=== PATIENT | male | born 1955 | race American Indian/Alaskan Native ===

== ENCOUNTER 2017-06-10 12:44 | Inpatient (IN) | payer MEDICARE, MEDICAID ==
[2017-06-10 12:51] VITALS: BMI 33.6
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
[2017-06-10 13:20] LABS: BASO # 0.02 K/mm3 (0.0-2.0); BASO % 0.3 % (0.0-3.0); EOS # 0.1 (0.0-0.7); GRAN # 3.45 (1.4-6.5); GRAN % 58.9 % (50.0-68.0); HEMATOCRIT 34.6 % (42.0-52.0); LYMPH # 1.5 (1.2-3.4); LYMPH % 25.2 % (22.0-35.0); MEAN CELL VOLUME 73.5 fl (80.0-105.0); MEAN CORPUSCULAR HEMOGLOBIN 22.9 pg (25.0-35.0); MEAN CORPUSCULAR HGB CONC 31.2 g/dl (31.0-37.0); MEAN PLATELET VOLUME 9.4 fl (7.0-11.0); MONO # 0.8 (0.1-0.6); MONO % 13.6 % (1.0-6.0); RED CELL DISTRIBUTION WIDTH 14.8 % (11.5-14.5); WHITE BLOOD COUNT 5.9 10^3/ul (4.5-11.0)
[2017-06-10 13:25] LABS: ALB/GLOB RATIO 0.9 (1.1-1.8); ALKALINE PHOSPHATASE 175 U/L (38-126); ALT/SGPT 86 U/L (7-56); AST/SGOT 46 U/L (17-59); BILIRUBIN,TOTAL 0.4 mg/dL (0.2-1.3); BLOOD UREA NITROGEN 34 mg/dL (7-21); CALCIUM 9.1 mg/dL (8.4-10.5); CARBON DIOXIDE 26 mmol/L (21-33); CHLORIDE 103 mmol/L (98-107); GFR AFRICAN-AMERICAN > 60; POTASSIUM 4.6 mmol/L (3.6-5.0); SODIUM 140 mmol/L (132-148); TOTAL PROTEIN 7.6 g/dL (5.8-8.3)
[2017-06-10 13:41] LABS: GLUCOSE,RANDOM 302 mg/dL (70-110)
[2017-06-10] MEDS ORDERED: Sodium Chloride 0.9% 500 ML IV STA (13:51)
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
[2017-06-10 15:06] LABS: VENOUS BLOOD GAS BASE EXCESS 0.7 mmol/L (0.0-2.0); VENOUS BLOOD PH 7.33 (7.32-7.43)
[2017-06-10] MEDS ORDERED: cefTRIAXone 1 gm 1 G/100 ML BAG IVPB STA (15:59)
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
[2017-06-10] MEDS ORDERED: Pneumococcal 23-Valent Vaccine IM ONE (18:58)
--- NOTE | 2017-06-10 19:22 | CARD ---
APPROVED REPORT EKG Measurement Heart [id number] <Conclusion> Sinus bradycardia with 1st degree AV block Possible Left atrial enlargement Cannot rule out Anterior infarct, age undetermined Abnormal ECG
[2017-06-10] MEDS ORDERED: INSULIN GLARGINE SC SCH (22:00)
[2017-06-10] MEDS: Insulin Lispro (humaLOG) MEDIUM Coverage SC SCH (22:23)
[2017-06-10] MEDS: Insulin Detemir 100 units/ml Vial (Levemir) SC SCH (22:24)
[2017-06-11] MEDS: Pantoprazole 40 mg EC Tab PO SCH ×2 (05:54→08:31)
[2017-06-11 07:13] LABS: BASO # 0.01 K/mm3 (0.0-2.0); BASO % 0.2 % (0.0-3.0); EOS # 0.1 (0.0-0.7); EOS % 2.2 % (1.5-5.0); GRAN # 2.92 (1.4-6.5); GRAN % 59.1 % (50.0-68.0); HEMATOCRIT 34.1 % (42.0-52.0); LYMPH # 1.2 (1.2-3.4); LYMPH % 24.4 % (22.0-35.0); MEAN CELL VOLUME 72.7 fl (80.0-105.0); MEAN CORPUSCULAR HEMOGLOBIN 22.2 pg (25.0-35.0); MEAN CORPUSCULAR HGB CONC 30.5 g/dl (31.0-37.0); MEAN PLATELET VOLUME 8.9 fl (7.0-11.0); MONO # 0.7 (0.1-0.6); MONO % 14.1 % (1.0-6.0); RED CELL DISTRIBUTION WIDTH 14.7 % (11.5-14.5)
[2017-06-11] MEDS: Insulin Lispro (humaLOG) MEDIUM Coverage SC SCH ×4 (08:29→21:18)
[2017-06-11] MEDS: Insulin Detemir 100 units/ml Vial (Levemir) SC SCH ×2 (09:37→21:17)
[2017-06-11] MEDS: cefTRIAXone 1 gm 1 GM/100 ML BAG IVPB SCH (09:51)
[2017-06-11] MEDS ORDERED: cefTRIAXone 2 GM IN NS 2 GM/100 ML BAG IVPB SCH (10:00)
--- NOTE | 2017-06-11 10:35 | RAD ---
PROCEDURE: Bilateral Knee Radiographs. HISTORY: left knee pain COMPARISON: None. FINDINGS: BONES: Right Knee: Normal. No fracture. Left Knee: Normal. No fracture. JOINTS: Right Knee: Severe joint space narrowing and osteophyte formation bilaterally in the medial and lateral compartments as well as patellofemoral joints Left knee: As above SOFT TISSUES: Right Knee: Normal. Left Knee: Normal. JOINT EFFUSION: Right Knee: None. Left Knee: None. OTHER FINDINGS: None. IMPRESSION: Severe joint space narrowing and osteophyte formation bilaterally in the medial and lateral compartments as well as patellofemoral joints
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
--- NOTE | 2017-06-11 17:41 | CP.PCM.PN ---
<Fredrick Mak - Last Filed: 06/11/17 17:51> Subjective - Date & Time of Evaluation Date of Evaluation: 06/11/17 Time of Evaluation: 09:00 - Subjective Subjective: Fredrick Mak DO, PGY-1 Patient seen and examined at bedside. Patient states swelling has gotten somewhat better but otherwise he is doing okay. Objective - Vital Signs/Intake and Output Vital Signs (last 24 hours): Temp Pulse Resp BP Pulse Ox 98.5 F 64 18 126/67 98 06/11/17 16:22 06/11/17 16:22 06/11/17 16:22 06/11/17 16:22 06/11/17 16:22 Intake and Output: 06/11/17 06/11/17 06:59 18:59 Intake Total 760 Balance 760 - Medications Medications: Current Medications Acetaminophen (Tylenol 325mg Tab) 650 mg PO Q6H PRN PRN Reason: Pain, Mild (1-3) Last Admin: 06/10/17 18:36 Dose: 650 mg Amlodipine Besylate (Norvasc) 5 mg PO DAILY [facility] Last Admin: 06/11/17 09:50 Dose: 5 mg Gabapentin (Neurontin) 300 mg PO TID [facility] PRN Reason: Protocol Last Admin: 06/11/17 14:32 Dose: 300 mg Heparin Sodium (Porcine) (Heparin) 5,000 units SC Q8 [facility] PRN Reason: Protocol Last Admin: 06/11/17 14:31 Dose: 5,000 units Hydralazine HCl (Apresoline) 25 mg PO TID [facility] Last Admin: 06/11/17 14:32 Dose: 25 mg Ceftriaxone Sodium (Rocephin 1 Gram Ivpb) 1 gm in 100 mls @ 100 mls/hr IVPB DAILY [facility] PRN Reason: Protocol Last Admin: 06/11/17 09:51 Dose: 100 mls/hr Insulin Detemir (Levemir) 25 unit SC QAM [facility] Last Admin: 06/11/17 09:37 Dose: 25 unit Insulin Detemir (Levemir) 30 unit SC HS [facility] Last Admin: 06/10/17 22:24 Dose: 30 unit Insulin Human Lispro (Humalog Med) 0 units SC ACHS [facility] PRN Reason: Protocol Last Admin: 06/11/17 12:12 Dose: 5 units Levetiracetam (Keppra) 500 mg PO BID [facility] Last Admin: 06/11/17 09:37 Dose: 500 mg Pantoprazole Sodium (Protonix Ec Tab) 40 mg PO ACB [facility] Last Admin: 06/11/17 08:31 Dose: Not Given - Labs Labs: 06/11/17 07:07 Assessment and Plan - Assessment and Plan (Free Text) Assessment: 62 year old male with past medical history of hypertension, diabetes, gout/ arthritis and seizure disorder who presented from [place] with complaint of left hand swelling, pain and erythema after injury. Also complains of left knee pain. Will start on iv antibiotics for cellulitis of the hand. Xray reviewed which showed no acute fracture but showed severe degenerative changes in the carpal bones. Plan: 1) Left hand cellulitis - Left dorsum of hand/wrist appears red, swollen, and with a small area of tissue loss. - X-ray of the left hand reads as no acute fracture, but with degenerative changes in the carpal bone. - 1 gm Ceftraixone q24h started empirically - ID consulted - Analgesia tylenol for mild-moderate; tramadol for severe pain 2) Left hand/wrist pain with pain with finger movement, point tenderness, and pain with even mildest hand/finger flexion - Orthopedist consulted 3) Left knee pain - Bilateral knee X-ray read as Severe joint space narrowing and osteophyte formation bilaterally in the medial and lateral compartments as well as patellofemoral joints 4) DM II - Levemir 25 and 30 U - ISS lispro ACHS with [facility] 5) Hypertension - Hydralazine 25 TID 6) Neuropathic pain: Resume Gabapentin 300 mg TID 7) DVT/GI: Heparin 5,000 U q8h/ Protonix 40 mg PO daily <Jian Keene - Last Filed: 06/15/17 23:14> Objective - Vital Signs/Intake and Output Vital Signs (last 24 hours): Temp Pulse Resp BP Pulse Ox 98.5 F 80 20 156/96 H 96 06/14/17 07:30 06/14/17 07:30 06/14/17 07:30 06/14/17 07:30 06/14/17 07:30 - Labs Labs: 06/14/17 07:30 06/14/17 07:30 - Constitutional Appears: Well, No Acute Distress - Head Exam Head Exam: NORMAL INSPECTION - Eye Exam Eye Exam: EOMI - ENT Exam ENT Exam: Normal Exam - Neck Exam Neck Exam: Full ROM - Respiratory Exam Respiratory Exam: Clear to Ausculation Bilateral. absent: Rhonchi - Cardiovascular Exam Cardiovascular Exam: REGULAR RHYTHM, +S1, +S2 - GI/Abdominal Exam GI & Abdominal Exam: Soft, Normal Bowel Sounds. absent: Tenderness, Organomegaly - Extremities Exam Additional comments: left hand swelling with decreased ROM; erythema improved bilateral knees with limited ROM - Neurological Exam Neurological Exam: Alert, Awake, Oriented x3 Attending/Attestation - Attestation I have personally seen and examined this patient.: Yes I have fully participated in the care of the patient.: Yes I have reviewed all pertinent clinical information, including history, physical exam and plan: Yes Notes (Text): 06/15/17 23:12 62 year old male with past medical history of hypertension, diabetes, gout/ arthritis and seizure disorder who presented from [place] with complaint of left hand swelling, pain and erythema after injury. Also complained of left knee pain. Xrays were reviewed. ID evaluation was appreciated. Orthopedic evaluation is pending. PT evaluation as well is pending. Continue with iv antibiotics. Erythema is improving. Continue with levemir for diabetes. Continue with hydralazine and norvasc for hypertension. Jian Keene MD Hospitalist.
[2017-06-12 07:25] LABS: BASO # 0.01 K/mm3 (0.0-2.0); BASO % 0.1 % (0.0-3.0); EOS % 0.1 % (1.5-5.0); GRAN # 5.31 (1.4-6.5); HEMATOCRIT 30.7 % (42.0-52.0); LYMPH # 1.1 (1.2-3.4); LYMPH % 14.7 % (22.0-35.0); MEAN CELL VOLUME 71.9 fl (80.0-105.0); MEAN CORPUSCULAR HEMOGLOBIN 22.5 pg (25.0-35.0); MEAN CORPUSCULAR HGB CONC 31.3 g/dl (31.0-37.0); MEAN PLATELET VOLUME 8.8 fl (7.0-11.0); MONO # 1.2 (0.1-0.6); MONO % 16.1 % (1.0-6.0); RED CELL DISTRIBUTION WIDTH 14.5 % (11.5-14.5); WHITE BLOOD COUNT 7.7 10^3/ul (4.5-11.0)
[2017-06-12] MEDS: Insulin Lispro (humaLOG) MEDIUM Coverage SC SCH ×3 (07:26→16:43)
[2017-06-12] MEDS: Pantoprazole 40 mg EC Tab PO SCH (08:23)
[2017-06-12] MEDS: Insulin Detemir 100 units/ml Vial (Levemir) SC SCH ×2 (10:25→21:51)
[2017-06-12 10:39] LABS: ALB/GLOB RATIO 0.8 (1.1-1.8); BILIRUBIN,TOTAL 0.7 mg/dL (0.2-1.3); CALCIUM 8.8 mg/dL (8.4-10.5); POTASSIUM 4.7 mmol/L (3.6-5.0); TOTAL PROTEIN 7.2 g/dL (5.8-8.3)
--- NOTE | 2017-06-12 10:59 | RAD ---
HISTORY: SIRS COMPARISON: No prior. TECHNIQUE: Chest PA and lateral FINDINGS: LUNGS: Technically limited examination particularly in the lateral projection. No pulmonary infiltrate. PLEURA: No significant pleural effusion identified. No pneumothorax apparent. CARDIOVASCULAR: Normal. OSSEOUS STRUCTURES: No significant abnormalities. VISUALIZED UPPER ABDOMEN: Normal. OTHER FINDINGS: None. IMPRESSION: No active disease.
[2017-06-12] MEDS: cefTRIAXone 1 gm 1 GM/100 ML BAG IVPB SCH (11:19)
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
[2017-06-12] MEDS ORDERED: Vancomycin 1,750 GM in Sodium Chloride 0.9% 500 ML IVPB ONE ×2 (13:15→22:00)
[2017-06-12] MEDS ORDERED: Vancomycin 1 g Inj IVPB SCH (13:15)
[2017-06-12 13:44] LABS: FLUID TYPE SYNOVIAL FLUID
[2017-06-12 14:38] LABS: SYNOVIAL FLUID LYMPHOCYTE 4.9 % (0-0); SYNOVIAL FLUID NEUTROPHIL 95.1 % (0-0); SYNOVIAL FLUID TOTAL COUNT 100 (0-0)
[2017-06-12] MEDS: Vancomycin 1.25 GM in Sodium Chloride 0.9% 500 ML IVPB SCH (14:39)
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
--- NOTE | 2017-06-12 21:32 | CP.PCM.PN ---
<Fredrick Mak - Last Filed: 06/13/17 07:17> Subjective - Date & Time of Evaluation Date of Evaluation: 06/12/17 Time of Evaluation: 21:32 - Subjective Subjective: Arturo Cabrales Patient seen and examined at bedside. Patient has been having fevers. Objective - Vital Signs/Intake and Output Vital Signs (last 24 hours): Temp Pulse Resp BP Pulse Ox 99.1 F 86 22 128/82 97 06/12/17 16:10 06/12/17 18:19 06/12/17 16:10 06/12/17 18:19 06/12/17 16:10 Intake and Output: 06/12/17 06/13/17 18:59 06:59 Intake Total 1300 360 Balance 1300 360 - Medications Medications: Current Medications Acetaminophen (Tylenol 325mg Tab) 650 mg PO Q6H PRN PRN Reason: Pain, Mild (1-3) Last Admin: 06/11/17 21:13 Dose: 650 mg Amlodipine Besylate (Norvasc) 5 mg PO DAILY [facility] Last Admin: 06/12/17 10:26 Dose: 5 mg Gabapentin (Neurontin) 100 mg PO TID [facility] PRN Reason: Protocol Last Admin: 06/12/17 18:18 Dose: 100 mg Heparin Sodium (Porcine) (Heparin) 5,000 units SC Q8 [facility] PRN Reason: Protocol Last Admin: 06/12/17 14:35 Dose: 5,000 units Hydralazine HCl (Apresoline) 25 mg PO TID [facility] Last Admin: 06/12/17 18:19 Dose: 25 mg Ceftriaxone Sodium (Rocephin 1 Gram Ivpb) 1 gm in 100 mls @ 100 mls/hr IVPB DAILY [facility] PRN Reason: Protocol Last Admin: 06/12/17 11:19 Dose: 100 mls/hr Vancomycin HCl 1.25 gm/ Sodium (Chloride) 500 mls @ 170 mls/hr IVPB Q12H [facility] Last Admin: 06/12/17 14:39 Dose: 170 mls/hr Insulin Detemir (Levemir) 25 unit SC QAM [facility] Last Admin: 06/12/17 10:25 Dose: 25 unit Insulin Detemir (Levemir) 30 unit SC HS [facility] Last Admin: 06/11/17 21:17 Dose: 30 unit Insulin Human Lispro (Humalog Med) 0 units SC ACHS [facility] PRN Reason: Protocol Last Admin: 06/12/17 16:43 Dose: 3 units Levetiracetam (Keppra) 500 mg PO BID [facility] Last Admin: 06/12/17 18:20 Dose: 500 mg Pantoprazole Sodium (Protonix Ec Tab) 40 mg PO ACB [facility] Last Admin: 06/12/17 08:23 Dose: 40 mg - Labs Labs: 06/12/17 07:21 06/12/17 10:00 - Constitutional Appears: Non-toxic, Older Than Stated Age, Chronically Ill - Head Exam Head Exam: ATRAUMATIC, NORMOCEPHALIC - Eye Exam Eye Exam: EOMI, Normal appearance - ENT Exam ENT Exam: Mucous Membranes Moist, Normal Oropharynx - Neck Exam Neck Exam: Normal Inspection. absent: Thyromegaly - Respiratory Exam Respiratory Exam: Clear to Ausculation Bilateral, NORMAL BREATHING PATTERN. absent: Rales - Cardiovascular Exam Cardiovascular Exam: RRR, +S1, +S2 - GI/Abdominal Exam GI & Abdominal Exam: Soft, Normal Bowel Sounds. absent: Guarding, Rebound - Extremities Exam Extremities Exam: Normal Capillary Refill. absent: Full ROM, Normal Inspection Additional comments: knees have crepitus and pain with AROM - Neurological Exam Neurological Exam: Awake, CN II-XII Intact. absent: Alert, Oriented x3 - Psychiatric Exam Psychiatric exam: Normal Affect, Normal Mood - Skin Skin Exam: Dry, Intact, Normal Color, Warm - Additional Findings Additional findings: Right hand pain with trying to make a fist Assessment and Plan - Assessment and Plan (Free Text) Assessment: 62 year old male with past medical history of hypertension, diabetes, gout/ arthritis and seizure disorder who presented from Shelter with complaint of left hand swelling, pain and erythema after injury. Also complains of knee pain. Started on IV antibiotics for cellulitis of the hand. Xray reviewed which showed no acute fracture but showed severe degenerative changes in the carpal bones. Plan: Plan: 1) Left hand cellulitis - Left dorsum of hand/wrist appears less red and swollen. - X-ray of the left hand reads as no acute fracture, but with degenerative changes in the carpal bone. - 1 gm Ceftraixone q24h started empirically - Vancomycin 1.25 gm q12h added given patient developing low grade fever and from [facility]. - Analgesia tylenol for mild-moderate; tramadol for severe pain - Rest, Ice, cold compresses to the left hand can begin now that it has been 48 hours, and continue with elevation 2) Right knee pain - Bilateral knee X-ray read as Severe joint space narrowing and osteophyte formation bilaterally in the medial and lateral compartments as well as patellofemoral joints - Right synovial fluid aspiration and cytology show uric acid crystals consistent with gouty inflammation. 3) TEODORO - Patient's Creatinine has increased to 1.9 from 1.3. - Monitor urine output with strict I/O 3) DM II - Levemir 25 and 30 U - ISS lispro ACHS with FSBG 4) Hypertension - Hydralazine 25 TID 5) Neuropathic pain: Resume Gabapentin 300 mg TID 6) DVT/GI: Heparin 5,000 U q8h/ Protonix 40 mg PO daily <Cristina DIEGO,Christina - Last Filed: 06/13/17 17:35> Objective - Vital Signs/Intake and Output Vital Signs (last 24 hours): Temp Pulse Resp BP Pulse Ox 99.1 F 96 H 22 158/93 H 96 06/13/17 10:28 06/13/17 08:00 06/13/17 08:00 06/13/17 08:00 06/13/17 08:00 Intake and Output: 06/13/17 06/13/17 06:59 18:59 Intake Total 480 480 Balance 480 480 - Medications Medications: Current Medications Acetaminophen (Tylenol 325mg Tab) 650 mg PO Q6H PRN PRN Reason: Pain, Mild (1-3) Last Admin: 06/13/17 09:28 Dose: 650 mg Amlodipine Besylate (Norvasc) 5 mg PO DAILY [facility] Last Admin: 06/13/17 09:28 Dose: 5 mg Gabapentin (Neurontin) 100 mg PO TID [facility] PRN Reason: Protocol Last Admin: 06/13/17 17:13 Dose: 100 mg Heparin Sodium (Porcine) (Heparin) 5,000 units SC Q8 [facility] PRN Reason: Protocol Last Admin: 06/13/17 13:19 Dose: 5,000 units Hydralazine HCl (Apresoline) 25 mg PO TID [facility] Last Admin: 06/13/17 17:18 Dose: 25 mg Ceftriaxone Sodium (Rocephin 1 Gram Ivpb) 1 gm in 100 mls @ 100 mls/hr IVPB DAILY [facility] PRN Reason: Protocol Last Admin: 06/13/17 09:27 Dose: 100 mls/hr Vancomycin HCl 1.25 gm/ Sodium (Chloride) 500 mls @ 170 mls/hr IVPB Q12H [facility] Last Admin: 06/13/17 13:53 Dose: 170 mls/hr Indomethacin (Indocin) 25 mg PO TID [facility] Last Admin: 06/13/17 17:18 Dose: 25 mg Insulin Detemir (Levemir) 25 unit SC QAM [facility] Last Admin: 06/13/17 09:30 Dose: 25 unit Insulin Detemir (Levemir) 30 unit SC HS [facility] Last Admin: 06/12/17 21:51 Dose: 30 unit Insulin Human Lispro (Humalog Med) 0 units SC ACHS [facility] PRN Reason: Protocol Last Admin: 06/13/17 17:14 Dose: 5 units Levetiracetam (Keppra) 500 mg PO BID [facility] Last Admin: 06/13/17 17:14 Dose: 500 mg Pantoprazole Sodium (Protonix Ec Tab) 40 mg PO ACB [facility] Last Admin: 06/13/17 09:28 Dose: Not Given - Labs Labs: 06/13/17 07:21 06/13/17 07:21 Attending/Attestation - Attestation I have personally seen and examined this patient.: Yes I have fully participated in the care of the patient.: Yes I have reviewed all pertinent clinical information, including history, physical exam and plan: Yes Notes (Text): 06/13/17 17:31 Patient was seen and examined with medical physics professor. 62 year old male with past medical history of hypertension, diabetes, gout/ arthritis and seizure disorder who presented from Shelter with complaint of left hand swelling, pain and erythema after injury, was treated with IV Rocephin, was febrile yesterday, right knee was swollen, patient underwent arthrocentesis yesterday, [place] [address], uric crystal are positive, less likely septic joint.We will follow up cultures, if synovial fluid cultures remain negative, vancomycin can be discontinued and patient can be discharged back to [place] on oral antibiotics Prognosis is guarded.
[2017-06-12] MEDS ORDERED: Vancomycin 500 mg Inj IVPB SCH (22:00)
[2017-06-13] MEDS: Vancomycin 1.25 GM in Sodium Chloride 0.9% 500 ML IVPB SCH ×2 (01:41→13:53)
[2017-06-13] MEDS: Insulin Lispro (humaLOG) MEDIUM Coverage SC SCH ×5 (01:43→21:26)
[2017-06-13] MEDS: Pantoprazole 40 mg EC Tab PO SCH ×2 (05:40→09:28)
[2017-06-13] MEDS ORDERED: Sodium Chloride 0.9% 100 ML IV SCH (07:13)
[2017-06-13 07:25] LABS: BASO # 0.01 K/mm3 (0.0-2.0); BASO % 0.1 % (0.0-3.0); EOS # 0.1 (0.0-0.7); EOS % 0.7 % (1.5-5.0); GRAN # 4.89 (1.4-6.5); GRAN % 66.1 % (50.0-68.0); HEMATOCRIT 30.6 % (42.0-52.0); LYMPH # 1.4 (1.2-3.4); LYMPH % 18.4 % (22.0-35.0); MEAN CELL VOLUME 71.5 fl (80.0-105.0); MEAN CORPUSCULAR HEMOGLOBIN 22.4 pg (25.0-35.0); MEAN CORPUSCULAR HGB CONC 31.4 g/dl (31.0-37.0); MEAN PLATELET VOLUME 9.3 fl (7.0-11.0); MONO # 1.1 (0.1-0.6); MONO % 14.7 % (1.0-6.0); RED CELL DISTRIBUTION WIDTH 14.6 % (11.5-14.5); WHITE BLOOD COUNT 7.4 10^3/ul (4.5-11.0)
[2017-06-13 07:44] LABS: BLOOD UREA NITROGEN 29 mg/dL (7-21); CALCIUM 8.6 mg/dL (8.4-10.5); CARBON DIOXIDE 25 mmol/L (21-33); CHLORIDE 106 mmol/L (95-110); GFR AFRICAN-AMERICAN > 60; GLUCOSE,RANDOM 141 mg/dL (70-110); POTASSIUM 4.3 mmol/L (3.6-5.0); SODIUM 139 mmol/L (132-148)
[2017-06-13 08:25] VITALS: O2SAT 96
[2017-06-13] MEDS: cefTRIAXone 1 gm 1 GM/100 ML BAG IVPB SCH (09:27)
[2017-06-13] MEDS: Insulin Detemir 100 units/ml Vial (Levemir) SC SCH ×2 (09:30→21:26)
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
--- NOTE | 2017-06-13 15:39 | CP.PCM.PN ---
Subjective - Date & Time of Evaluation Date of Evaluation: 06/13/17 Time of Evaluation: 15:23 - Subjective Subjective: Patient more cooperative today. He states he has no pain in his knees or his wrist. Review of Systems - Review of Systems Systems not reviewed;Unavailable: Dementia Objective - Vital Signs/Intake and Output Vital Signs (last 24 hours): Temp Pulse Resp BP Pulse Ox 99.1 F 96 H 22 158/93 H 96 06/13/17 10:28 06/13/17 08:00 06/13/17 08:00 06/13/17 08:00 06/13/17 08:00 Intake and Output: 06/13/17 06/13/17 06:59 18:59 Intake Total 480 480 Balance 480 480 - Medications Medications: Current Medications Acetaminophen (Tylenol 325mg Tab) 650 mg PO Q6H PRN PRN Reason: Pain, Mild (1-3) Last Admin: 06/13/17 09:28 Dose: 650 mg Amlodipine Besylate (Norvasc) 5 mg PO DAILY [facility] Last Admin: 06/13/17 09:28 Dose: 5 mg Gabapentin (Neurontin) 100 mg PO TID [facility] PRN Reason: Protocol Last Admin: 06/13/17 13:19 Dose: 100 mg Heparin Sodium (Porcine) (Heparin) 5,000 units SC Q8 [facility] PRN Reason: Protocol Last Admin: 06/13/17 13:19 Dose: 5,000 units Hydralazine HCl (Apresoline) 25 mg PO TID [facility] Last Admin: 06/13/17 13:26 Dose: 25 mg Ceftriaxone Sodium (Rocephin 1 Gram Ivpb) 1 gm in 100 mls @ 100 mls/hr IVPB DAILY [facility] PRN Reason: Protocol Last Admin: 06/13/17 09:27 Dose: 100 mls/hr Vancomycin HCl 1.25 gm/ Sodium (Chloride) 500 mls @ 170 mls/hr IVPB Q12H [facility] Last Admin: 06/13/17 13:53 Dose: 170 mls/hr Indomethacin (Indocin) 25 mg PO TID [facility] Last Admin: 06/13/17 13:24 Dose: 25 mg Insulin Detemir (Levemir) 25 unit SC QAM [facility] Last Admin: 06/13/17 09:30 Dose: 25 unit Insulin Detemir (Levemir) 30 unit SC HS [facility] Last Admin: 06/12/17 21:51 Dose: 30 unit Insulin Human Lispro (Humalog Med) 0 units SC ACHS [facility] PRN Reason: Protocol Last Admin: 06/13/17 11:25 Dose: 5 units Levetiracetam (Keppra) 500 mg PO BID [facility] Last Admin: 06/13/17 09:28 Dose: 500 mg Pantoprazole Sodium (Protonix Ec Tab) 40 mg PO ACB [facility] Last Admin: 06/13/17 09:28 Dose: Not Given - Labs Labs: 06/13/17 07:21 06/13/17 07:21 - Constitutional Appears: Well, No Acute Distress - Respiratory Exam Respiratory Exam: NORMAL BREATHING PATTERN - Cardiovascular Exam Additional comments: +radial pulse left +DP/PT pulses RLE calves soft NT neg homans - Extremities Exam Additional comments: Left hand: swelling significantly improved overnight. Minimally erythematous to dorsal hand. Extends all fingers fully actively and passively without pain. Complains of pain with attempts at making a fist, but tolerates much more passive flexion of fingers. Sensation intact. Skin intact, hand elevated Right knee: patient moves knee 20-90 degrees without pain actively, which is much improved from yesterday. Still + knee effusion, but not any worse than yesterday. Mildly warm, no erythema. Sensation intact, Skin intact, aspiration site dry. - Neurological Exam Neurological Exam: Awake - Psychiatric Exam Psychiatric exam: Flat Affect - Skin Skin Exam: Dry, Intact, Warm Additional comments: erythema to dorsum of left hand improving Assessment and Plan (1) Cellulitis of left hand Assessment & Plan: Improving continue elevation, cont antibiotics as per ID Ice OT encourage AROM fingers negative xrays d/w Dr. Leung, agrees with above Status: Acute (2) Acute gout of right knee Assessment & Plan: Improving PT/OT culture neg x 24 hrs + crystals medical management Status: Acute
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
[2017-06-14] MEDS: Vancomycin 1.25 GM in Sodium Chloride 0.9% 500 ML IVPB SCH (01:10)
[2017-06-14 07:48] LABS: BASO # 0.01 K/mm3 (0.0-2.0); BASO % 0.2 % (0.0-3.0); EOS # 0.2 (0.0-0.7); EOS % 3.7 % (1.5-5.0); GRAN # 3.25 (1.4-6.5); GRAN % 63.4 % (50.0-68.0); HEMATOCRIT 31.7 % (42.0-52.0); LYMPH # 1.1 (1.2-3.4); LYMPH % 21.2 % (22.0-35.0); MEAN CELL VOLUME 71.9 fl (80.0-105.0); MEAN CORPUSCULAR HEMOGLOBIN 22.2 pg (25.0-35.0); MEAN CORPUSCULAR HGB CONC 30.9 g/dl (31.0-37.0); MEAN PLATELET VOLUME 8.9 fl (7.0-11.0); MONO # 0.6 (0.1-0.6); MONO % 11.5 % (1.0-6.0); RED CELL DISTRIBUTION WIDTH 14.4 % (11.5-14.5); WHITE BLOOD COUNT 5.1 10^3/ul (4.5-11.0)
[2017-06-14 08:08] LABS: BLOOD UREA NITROGEN 23 mg/dL (7-21); CALCIUM 8.8 mg/dL (8.4-10.5); CARBON DIOXIDE 27 mmol/L (21-33); CHLORIDE 108 mmol/L (98-107); GFR AFRICAN-AMERICAN > 60; GLUCOSE,RANDOM 105 mg/dL (70-110); POTASSIUM 4.2 mmol/L (3.6-5.0); SODIUM 141 mmol/L (132-148)
[2017-06-14 08:31] VITALS: BP 156/96; PULSE 80; RESP 20; TEMP 98.5
[2017-06-14] MEDS: Insulin Lispro (humaLOG) MEDIUM Coverage SC SCH ×2 (09:50→12:29)
[2017-06-14] MEDS: cefTRIAXone 1 gm 1 GM/100 ML BAG IVPB SCH (09:51)
[2017-06-14] MEDS: Pantoprazole 40 mg EC Tab PO SCH (09:52)
[2017-06-14] MEDS: Insulin Detemir 100 units/ml Vial (Levemir) SC SCH (10:21)
--- NOTE | 2017-06-14 10:31 | CP.PCM.PN ---
Subjective - Date & Time of Evaluation Date of Evaluation: 06/14/17 Time of Evaluation: 10:28 - Subjective Subjective: Patient much more awake and alert today. "I want to get out of here today." Denies pain in hand or knee. Denies any CP/SOB/numbness/tingling. Review of Systems - Review of Systems Systems not reviewed;Unavailable: Dementia All systems: reviewed and no additional remarkable complaints except - Constitutional Additional comments: denies - Cardiovascular Cardiovascular: UNREMARKABLE - Respiratory Respiratory: As Per HPI - Musculoskeletal Musculoskeletal: As Par HPI - Integumentary Integumentary: UNREMARKABLE - Neurological Neurological: As Per HPI Objective - Vital Signs/Intake and Output Vital Signs (last 24 hours): Temp Pulse Resp BP Pulse Ox 98.5 F 80 20 156/96 H 96 06/14/17 07:30 06/14/17 07:30 06/14/17 07:30 06/14/17 07:30 06/14/17 07:30 - Medications Medications: Current Medications Acetaminophen (Tylenol 325mg Tab) 650 mg PO Q6H PRN PRN Reason: Pain, Mild (1-3) Last Admin: 06/13/17 09:28 Dose: 650 mg Amlodipine Besylate (Norvasc) 5 mg PO DAILY [facility] Last Admin: 06/14/17 09:51 Dose: 5 mg Gabapentin (Neurontin) 100 mg PO TID [facility] PRN Reason: Protocol Last Admin: 06/14/17 09:50 Dose: 100 mg Heparin Sodium (Porcine) (Heparin) 5,000 units SC Q8 [facility] PRN Reason: Protocol Last Admin: 06/13/17 21:25 Dose: 5,000 units Hydralazine HCl (Apresoline) 25 mg PO TID [facility] Last Admin: 06/14/17 09:50 Dose: 25 mg Ceftriaxone Sodium (Rocephin 1 Gram Ivpb) 1 gm in 100 mls @ 100 mls/hr IVPB DAILY [facility] PRN Reason: Protocol Last Admin: 06/14/17 09:51 Dose: 100 mls/hr Indomethacin (Indocin) 25 mg PO TID [facility] Last Admin: 06/14/17 09:50 Dose: 25 mg Insulin Detemir (Levemir) 25 unit SC QAM [facility] Last Admin: 06/14/17 10:21 Dose: 25 unit Insulin Detemir (Levemir) 30 unit SC HS [facility] Last Admin: 06/13/17 21:26 Dose: 30 unit Insulin Human Lispro (Humalog Med) 0 units SC ACHS [facility] PRN Reason: Protocol Last Admin: 06/14/17 09:50 Dose: Not Given Levetiracetam (Keppra) 500 mg PO BID [facility] Last Admin: 06/14/17 09:56 Dose: 500 mg Pantoprazole Sodium (Protonix Ec Tab) 40 mg PO ACB [facility] Last Admin: 06/14/17 09:52 Dose: Not Given - Labs Labs: 06/14/17 07:30 06/14/17 07:30 - Constitutional Appears: Well, No Acute Distress - Head Exam Head Exam: ATRAUMATIC - Cardiovascular Exam Additional comments: LUE +radial pulse RLE: +DP pulse, calves soft NT neg homans - Extremities Exam Additional comments: Left hand: swelling almost resolved, minimally tender to dorsum of hand, generalized. No tenderness to palmar aspect of hand. non tender to fingers. sensation intact Right knee; still mild joint effusion, no erythema, improving ROM, non tender skin intact - Neurological Exam Neurological Exam: Alert, Awake Neuro motor strength exam: Left Upper Extremity: 3 (almost full active extension of fingers, flexes to 80 at MCP joints, but complains of pain with flexion of all fingers, but intact flexion at DIP/PIP all fingers with prompting. encouraged AROM/AAROM), Right Lower Extremity: 5 (+DF/PF, knee AROM 20-100 without pain) - Psychiatric Exam Psychiatric exam: Normal Affect, Normal Mood - Skin Skin Exam: Dry, Intact, Warm Additional comments: erythema almost resolved Assessment and Plan (1) Cellulitis of left hand Assessment & Plan: improving daily PO antibiotics as per ID orthopedically stable for d/c back to [place] f/u Dr. Leung 7-10 days prn call for appointment [phone] continue ice and elevation for symptomatic relief d/w Dr. Leung, agrees with above Status: Acute (2) Acute gout of right knee Assessment & Plan: improving PT/OT for ROM/strengthening of all extremities ortho stable for d/c cultures prelim neg WBC consistent with gout Status: Acute
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
== END 2017-06-14 16:10 | DRG 603 ==
LOC: ED 12:44 → ERH 16:01 → 5RSO 17:08
PROVIDERS: ADMIT Hospitalist; ATTEND Hospitalist
PROC: 0S9C3ZX Drainage of Right Knee Joint, Percutaneous Approach, Diagnostic (ICD-10-PCS; principal; 2017-06-12)
DX: L03.114 Cellulitis of left upper limb (principal); M1A.9XX0 Chronic gout, unspecified, without tophus (tophi); M25.461 Effusion, right knee; E11.40 Type 2 diabetes mellitus with diabetic neuropathy, unspecified; I10 Essential (primary) hypertension; I87.2 Venous insufficiency (chronic) (peripheral); D64.9 Anemia, unspecified; S60.222A Contusion of left hand, initial encounter; I25.10 Atherosclerotic heart disease of native coronary artery without angina pectoris; M25.532 Pain in left wrist; M79.642 Pain in left hand; G40.909 Epilepsy, unspecified, not intractable, without status epilepticus; F32.9 Major depressive disorder, single episode, unspecified; Z86.73 Personal history of transient ischemic attack (TIA), and cerebral infarction without residual deficits; Y04.0XXA Assault by unarmed brawl or fight, initial encounter; Y92.129 Unspecified place in nursing home as the place of occurrence of the external cause